=== PATIENT | female | born 2000 | race Caucasian/White ===

== ENCOUNTER 2018-04-05 18:09 | Emergency (ER) | payer OTHER ==
[2018-04-05 18:29] VITALS: BP 112/60
--- NOTE | 2018-04-05 18:44 | UC ---
Back Pain HPI - HPI Summary HPI Summary: C/O low back pain x 3 weeks. Gradual worsening. No known trauma. Worse with trying to get up from sitting, getting out of bed. Worse with prolonged sitting. No numbness or weakness. Some burning. Tried rolling, stretching, yoga , advil, ice, heat. - History of Current Complaint Chief Complaint: UCBackPain Stated Complaint: BACK PAIN Time Seen by Provider: 04/05/18 18:36 Hx Obtained From: Patient Hx Last Menstrual Period: 03/29/18 ?: No Onset/Duration: Gradual Onset, Lasting Weeks - 3, Worse Since - onset Timing: Constant Severity Initially: Mild Severity Currently: Severe Pain Intensity: 10 Back Pain: Is Discrete @ - right lower back., Radiates To - the right buttocks. Character: Sharp, Aching, Burning Aggravating Factor(s): Other - prolonged sitting/ inactivity. Alleviating Factor(s): Other - movement Associated Signs And Symptoms: Negative: Weakness, Numbness, Tingling, Bladder Incontinence, Bowel Incontinence, Pain with Weight Bearing - Allergies/Home Medications Allergies/Adverse Reactions: Allergies Allergy/AdvReac Type Severity Reaction Status Date / Time No Known Allergies Allergy Verified 04/05/18 18:25 Home Medications: Home Medications Ibuprofen [Advil] 200 mg PO DAILY 04/05/18 [History Confirmed 04/05/18] Norgestimate-Ethinyl Estradiol [Ortho-Cyclen 28 Tablet] 1 each PO DAILY [History Confirmed 04/05/18] PMH/Surg Hx/FS Hx/Imm Hx Other Endocrine History: PCOS - Surgical History Surgical History: Yes Surgery Procedure, Year, and Place: ORAL SURGERY. BUNIONECTOMY - Family History Known Family History: Positive: Diabetes - Social History Occupation: Student Lives: Dormitory/Roommates Alcohol Use: None Substance Use Type: None Smoking Status (MU): Never Smoked Tobacco Review of Systems Musculoskeletal: Arthralgia - right low back pain Is Patient Immunocompromised?: No All Other Systems Reviewed And Are Negative: Yes Physical Exam Triage Information Reviewed: Yes Appearance: Well-Appearing, No Pain Distress, Well-Nourished Vital Signs: Initial Vital Signs Temp 97.7 F 04/05/18 18:21 Pulse 66 04/05/18 18:21 Resp 16 04/05/18 18:21 BP 112/60 04/05/18 18:21 Pulse Ox 100 04/05/18 18:21 Vital Signs Reviewed: Yes Eyes: Positive: Conjunctiva Clear Neck exam: Normal Respiratory Exam: Normal Cardiovascular Exam: Normal Musculoskeletal: Positive: ROM Limited @ - lumbar spine, Other: - tender right SI and into the pyriformis area Neurological Exam: Normal - DTR 2+ patella and achilles and normal sensation to pinprick bilateral lower extremities Psychological Exam: Normal Skin Exam: Normal Back Pain Course/Dx - Differential Dx/Diagnosis Differential Diagnosis/HQI/PQRI: Arthritis, Herniated Disc, Strain, Sprain Provider Diagnoses: acute sacroiliitis Discharge - Sign-Out/Discharge Documenting (check all that apply): Patient Departure All imaging exams completed and their final reports reviewed: No Studies - Discharge Plan Condition: Stable Disposition: HOME Patient Education Materials: Sacroiliitis (ED) Referrals: No Primary Care Phys,NOPCP [Primary Care Provider] - Additional Instructions: Please see a chiropractor first. If not better use the physical therapy script. - Billing Disposition and Condition Condition: STABLE Disposition: Home
== END 2018-04-05 19:03 | disposition home or self-care (01) ==
LOC: UCCORT 18:09
DX: M46.1 Sacroiliitis, not elsewhere classified (principal)
CPT/HCPCS: 99201; G0463

== ENCOUNTER 2019-08-24 11:36 | Emergency (ER) | payer OTHER ==
[2019-08-24 11:46] VITALS: BP 102/67
--- NOTE | 2019-08-24 12:21 | UC ---
Hand/Wrist HPI - HPI Summary HPI Summary: 18-year-old college student who slipped on ice approximately 3 days ago landing and catching herself with her left palm. She complains of pain to the wrist area. No other injury. - History Of Current Complaint Chief Complaint: UCUpperExtremity Stated Complaint: LEFT WRIST INJURY Time Seen by Provider: 08/24/19 11:57 Hx Obtained From: Patient Hx Last Menstrual Period: On control-no cycles ?: No Onset/Duration: Sudden Onset Severity Initially: Moderate Severity Currently: Mild Pain Intensity: 7 Character Of Pain: Dull, Aching Aggravating Factor(s): Movement, Flexion, Extension Alleviating Factor(s): Rest Associated Signs And Symptoms: Positive: Negative - Allergies/Home Medications Allergies/Adverse Reactions: Allergies Allergy/AdvReac Type Severity Reaction Status Date / Time No Known Allergies Allergy Verified 08/24/19 11:46 PMH/Surg Hx/FS Hx/Imm Hx Previously Healthy: Yes - Surgical History Surgical History: Yes Surgery Procedure, Year, and Place: ORAL SURGERY. BUNIONECTOMY - Family History Known Family History: Positive: Diabetes - Social History Occupation: Student Lives: Dormitory/Roommates Alcohol Use: Weekly Substance Use Type: None Smoking Status (MU): Never Smoked Tobacco - Immunization History Vaccination Up to Date: Yes Review of Systems All Other Systems Reviewed And Are Negative: Yes Musculoskeletal: Positive: Other: - Pain around the left wrist mostly with movement where she is putting her palm on the floor and lifting herself up as in pushups. Is Patient Immunocompromised?: No Physical Exam Triage Information Reviewed: Yes Appearance: Well-Appearing, No Pain Distress, Well-Nourished Vital Signs: Initial Vital Signs Temp 98.3 F 08/24/19 11:41 Pulse 59 08/24/19 11:41 Resp 18 08/24/19 11:41 BP 102/67 08/24/19 11:41 Pulse Ox 99 08/24/19 11:41 Vital Signs Reviewed: Yes Musculoskeletal: Positive: Strength Intact, ROM Intact, Other: - Very minimal pain on palpation left wrist. No bruising, erythema, deformity or swelling is noted. Good range of motion. Good finger strength to flexion extension against resistance. Neurological Exam: Normal Psychological Exam: Normal Skin Exam: Normal Hand/Wrist Course/Dx - Course Course Of Treatment: Left wrist x-ray: FINDINGS: The bones are in normal alignment. No fracture is seen. Joint spaces appear maintained. IMPRESSION: NO EVIDENCE FOR FRACTURE. IF THE PATIENT'S SYMPTOMS PERSIST RECOMMEND FOLLOW-UP IMAGING. A cock-up splint was applied for comfort. She can take Tylenol and alternate that with Motrin for pain. She is to follow-up with the orthopedist if she has continued symptoms over the next 5-7 days with no improvement. She can use the cock-up splint as needed. - Differential Dx/Diagnosis Provider Diagnosis: Left wrist sprain Discharge ED - Sign-Out/Discharge Documenting (check all that apply): Patient Departure All imaging exams completed and their final reports reviewed: Yes - Discharge Plan Condition: Good Disposition: HOME Patient Education Materials: Wrist Sprain (ED) Referrals: No Primary Care Phys,NOPCP [Primary Care Provider] - Wu Gamble MD [Medical Doctor] - Additional Instructions: Keep the wrist splint on for comfort, Tylenol every 4 hours and may alternate with ibuprofen every 8 hours for pain. Definite follow-up with the orthopedist if no improvement in 5-7 days. Avoid movements that cause pain. - Billing Disposition and Condition Condition: GOOD Disposition: Home
== END 2019-08-24 12:33 | disposition home or self-care (01) ==
LOC: UCCORT 11:36
DX: S63.502A Unspecified sprain of left wrist, initial encounter (principal); W00.0XXA Fall on same level due to ice and snow, initial encounter; Y92.9 Unspecified place or not applicable
CPT/HCPCS: 99211; G0463